=== PATIENT | female | born 1970 | race Caucasian/White ===

== ENCOUNTER 2017-02-11 08:30 | Emergency (ER) | payer BC, OTHER ==
[~2017-02-11] VITALS: Ht 154.9 cm; Wt 55.0 kg
[~2017-02-11 08:30] MED LIST: NO CURRENT MEDS
[2017-02-11 08:34] VITALS: Ht 154.9 cm; Wt 55.0 kg
[2017-02-11] MEDS ORDERED: SODI126M NASAL (08:52)
--- NOTE | 2017-02-11 16:30 | ERD ---
ER Documentation Chief Complaint Date/Time DATE: 02/11/17 TIME: 16:28 Chief Complaint bodyache,headcahe,cough,runny nose,sore throat HPI 46-year-old female complaining of body ache, sore throat, and headache since yesterday. Patient stated the symptoms have gotten worse today. She now has cough and runny nose. The cough is nonproductive. Denies fever or chills. Denies shortness of breath. Denies abdominal pain, nausea, vomiting, or diarrhea. ROS All systems reviewed and are negative except as per history of present illness. Medications Home Meds Active Scripts Sodium Chloride (Saline Nasal Mist) 126 Ml Mist, 2 SPRAY NASAL Q2H Y for NASAL CONGESTION, #1 BOTTLE Prov:JULISSA HUYNH NP 02/11/17 Reported Medications [No Current Meds] No Conflict Check 09/15/09 Allergies Allergies: Coded Allergies: No Known Allergy (Verified , 05/30/13) PMhx/Soc History of Surgery: Yes (LASER EYE SX BOTH EYES) Anesthesia Reaction: No Hx Neurological Disorder: No Hx Respiratory Disorders: No Hx Cardiac Disorders: No Hx Psychiatric Problems: No Hx Miscellaneous Medical Probl: No Hx Alcohol Use: No Hx Substance Use: No Hx Tobacco Use: No Physical Exam Vitals Vital Signs Date Time Temp Pulse Resp B/P Pulse Ox O2 Delivery O2 Flow Rate FiO2 02/11/17 08:34 98.7 85 18 128/66 98 Physical Exam General: Well-developed, well-nourished, conscious and coherent, in no distress Skin: Warm and dry without rash, good texture and turgor Head: Normocephalic without evidence of trauma Eyes: Sclera and conjunctivae normal; pupils equal, round, and reactive to light; extraocular movements are intact Ears: Canals are patent. Tympanic membranes are clear Nose/Face: Erythematous and swollen with clear nasal discharge. Mouth/throat: Mucous membranes are moist. Posterior pharynx clear without erythema or exudates Neck: Supple without meningismus or adenopathy. Carotids are equal. Trachea midline. No bruits or JVD Chest: Normal AP diameter. Good expansion without retractions. Nontender. Lungs are clear to auscultate bilaterally with good tidal volume Heart: Regular rate and rhythm. No murmur, rub, or gallops heard Abdomen: Soft and nontender without masses, guarding, or rebound. Bowel sounds are active. No hepatosplenomegaly Extremities: Full range of motion. Good strength bilaterally. No clubbing, cyanosis, or edema. Peripheral pulses are intact. Sensation intact Neuro: Alert and oriented 4, GCS 15. Cranial nerves grossly intact. Motor and sensory exams nonfocal. Moves all extremities. Speech clear. Gait normal Procedures/MDM Patient is afebrile, in no respiratory distress. Lungs are clear to auscultate. I doubt that patient has pneumonia or bronchitis. Likely patient's symptoms are result of viral upper respiratory infection. Patient appears well, stable for discharge and outpatient management. Medical decision making shared with patient and family. Education provided to patient and family. Patient and family expressed understanding of the plan. Medications on discharge: Saline nasal spray. Follow-up: Primary care provider in 2-3 days or return to ED if worse. Disclaimer: Inadvertent spelling and grammatical errors are likely due to EHR/ dictation software use and do not reflect on the overall quality of patient care. Also, please note that the electronic time recorded on this note does not necessarily reflect the actual time of the patient encounter. Departure Diagnosis: Primary Impression: Upper respiratory infection Condition: Stable Patient Instructions: Adult Self-Care for Colds Referrals: DOCTOR,NOT ON STAFF (PCP) COMM[facility]ITY CL[facility] YOU HAVE RECEIVED A MEDICAL SCREENING EXAM AND THE RESULTS INDICATE THAT YOU DO NOT HAVE A CONDITION THAT REQUIRES URGENT TREATMENT IN THE EMERGENCY DEPARTMENT. FURTHER EVALUATION AND TREATMENT OF YOUR CONDITION CAN WAIT UNTIL YOU ARE SEEN IN YOUR DOCTORS OFFICE WITHIN THE NEXT 1-2 DAYS. IT IS YOUR RESPONSIBILITY TO MAKE AN APPOINTMENT FOR FOLOW-UP CARE. IF YOU HAVE A PRIMARY DOCTOR --you should call your primary doctor and schedule an appointment IF YOU DO NOT HAVE A PRIMARY DOCTOR YOU CAN CALL OUR PHYSICIAN REFERRAL HOTLINE AT IF YOU CAN NOT AFFORD TO SEE A PHYSICIAN YOU CAN CHOSE FROM THE FOLLOWING REPLACED BY [facility] [address] [facility] [address] [facility] [address] [facility] [address] [facility] [address] [facility] [facility] [address] Additional Instructions: Call your primary care doctor TOMORROW for an appointment during the next 2-3 days.See the doctor sooner or return here if your condition worsens before your appointment time. JULISSA HUYNH. MAXWELL Feb 11, 2017 16:30
== END 2017-02-11 09:13 | disposition home or self-care (01) ==
LOC: FTE 08:30
DX: J06.9 Acute upper respiratory infection, unspecified (principal)
CPT/HCPCS: 99283

== ENCOUNTER 2017-02-17 14:07 | Emergency (ER) | payer BC ==
[~2017-02-17 14:07] MED LIST changes: +SODI126M NASAL
[2017-02-17] MEDS ORDERED: IBUP-1542 PO (14:15)
[2017-02-17] MEDS ORDERED: IBUPROFEN 600 MG TAB PO ONE (14:30)
[2017-02-17] MEDS ORDERED: PENICILLIN G BENZ 1.2 MIL UNIT SYG IM ONE (14:30)
--- NOTE | 2017-02-17 18:07 | ERD ---
ER Documentation Chief Complaint Date/Time DATE: 02/17/17 TIME: 18:03 Chief Complaint HPI 46-year-old young woman otherwise healthy presents with one-week URI symptoms and sore throat 3-4 days. She has had pain with swallowing and tactile fevers , no rash, no vomiting or diarrhea, no dysuria, no chest pain or shortness of breath. Patient has not yet used antibiotics. ROS All systems reviewed and are negative except as per history of present illness. Medications Home Meds Active Scripts Ibuprofen* (Ibuprofen*) 600 Mg Tablet, 600 MG PO Q8 for PAIN AND/OR INFLAMMATION , #30 TAB Prov:KENNEDY RAMSAY MD 02/17/17 Sodium Chloride (Saline Nasal Mist) 126 Ml Mist, 2 SPRAY NASAL Q2H Y for NASAL CONGESTION, #1 BOTTLE Prov:JULISSA HUYNH NP 02/11/17 Reported Medications [No Current Meds] No Conflict Check 09/15/09 Allergies Allergies: Coded Allergies: No Known Allergy (Verified , 05/30/13) PMhx/Soc History of Surgery: Yes (LASER EYE SX BOTH EYES) Anesthesia Reaction: No Hx Neurological Disorder: No Hx Respiratory Disorders: No Hx Cardiac Disorders: No Hx Psychiatric Problems: No Hx Miscellaneous Medical Probl: No Hx Alcohol Use: No Hx Substance Use: No Hx Tobacco Use: No FmHx Family History: No diabetes Physical Exam Vitals Per nurses records Physical Exam GENERAL: Well-developed, well-nourished, well-hydrated, in no apparent distress , looks nontoxic in appearance HEENT: Bilateral pharyngeal erythema with exudates, uvula is midline, no submandibular induration. Mild nasal congestion NEURO: Alert and oriented 3, cranial nerves II through XII intact bilaterally, pupils equal round reactive to light, no focal deficits or facial asymmetry, sensation intact distally Strength 5/5 in upper and lower extremities bilaterally CARDIAC: Regular rate and rhythm, no murmurs rubs or gallops LUNGS: Clear bilaterally no wheezing crackles or stridor ABDOMEN: Soft nontender, no guarding, no rigidity, no rebound, no psoas sign no obturator sign. Normoactive bowel sounds SKIN: Warm and dry to touch, no abrasions, contusions, or hematomas, no lacerations, no ecchymosis, no target lesions, and without ulcers EXTREMITIES: No clubbing cyanosis or edema, calves are bilaterally symmetrical, no Homans sign, no popliteal cord sign. Distal pulses equal and bilateral PSYCH: Normal affect without agitation or irritability Results 24 hrs Current Medications Medications (Trade) Dose Ordered Sig/Ruth Ann Route PRN Reason Start Time Stop Time Status Last Admin Dose Admin Penicillin G Benzathine (Bicillin La) 1,200,000 units ONCE ONCE IM 02/17/17 14:30 02/17/17 14:31 DC 02/17/17 14:33 Ibuprofen (Motrin) 600 mg ONCE ONCE PO 02/17/17 14:30 02/17/17 14:31 DC 02/17/17 14:29 Procedures/MDM I administered ibuprofen 600 mg p.o. and penicillin LA 1.2 million units IM 1. Patient feels much better at this time, and vital signs are normal, symptoms have improved. I did give strict instructions to return to the ED if symptoms continue or worsen, patient will otherwise follow-up with primary care physician. Patient understood instructions and agreed to plan. Disclaimer: Inadvertent spelling and grammatical errors are likely due to EHR/ dictation software use and do not reflect on the overall quality of patient care. Also, please note that the electronic time recorded on this note does not necessarily reflect the actual time of the patient encounter. Departure Diagnosis: Primary Impression: Strep pharyngitis Condition: Good Patient Instructions: Strep Throat KENNEDY RAMSAY MD Feb 17, 2017 18:07
== END 2017-02-17 16:24 | disposition home or self-care (01) ==
LOC: E/R 14:07
DX: J02.0 Streptococcal pharyngitis (principal)
CPT/HCPCS: 96372; 99284; J0561

== ENCOUNTER → 2017-04-05 | Outpatient (CLI) | payer BC ==
[~2017-04-05] MED LIST changes: +IBUP-1542 PO
[2017-04-05 07:33] LABS: ADD UMIC YES; UR ASCORBIC ACID NEGATIVE (NEGATIVE); UR BILIRUBIN (Dip) NEGATIVE (NEGATIVE); UR BLOOD (Dip) NEGATIVE (NEGATIVE); UR CLARITY SLIGHTLY CLOUDY (CLEAR); UR COLOR YELLOW (YELLOW); UR GLUCOSE (Dip) NEGATIVE (NEGATIVE); UR KETONES (Dip) NEGATIVE (NEGATIVE); UR LEUKOCYTE ESTERASE (Dip) TRACE Leu/ul (NEGATIVE); UR NITRITE (Dip) NEGATIVE (NEGATIVE); UR RBC 1 /HPF (0-5); UR SPECIFIC GRAVITY (Dip) 1.017 (1.003-1.030); UR SQUAMOUS EPITHELIAL CELL MODERATE /HPF (FEW); UR TOTAL PROTEIN (Dip) NEGATIVE (NEGATIVE); UR UROBILINOGEN (Dip) NEGATIVE (NEGATIVE)
[2017-04-05 07:36] LABS: IRON 159 ug/dl (35-150)
[2017-04-05 07:38] LABS: ALBUMIN 3.9 g/dl (3.3-4.9); ALBUMIN/GLOBULIN RATIO 1.34; BILIRUBIN,INDIRECT 0.7 mg/dl (0-1.1); BILIRUBIN,TOTAL 0.7 mg/dl (0.2-1.3); CHOL/HDL RATIO 2.7 RATIO; CREATININE 0.88 mg/dl (0.44-1.00); TOTAL PROTEIN 6.8 g/dl (6.1-8.1)
[2017-04-05 07:46] LABS: TOTAL IRON BINDING CAPACITY 343 ug/dl (241-421)
[2017-04-05 07:57] LABS: FREE T3 3.8 pg/ml (2.77-5.27); T3 UPTAKE 36.2 % (23.5-40.5)
[2017-04-05 08:10] LABS: THYROID STIMULATING HORMONE 1.52 MIU/L (0.465-4.680); TRIIODOTHYRONINE 1.01 ng/ml (0.97-1.69)
--- NOTE | 2017-04-05 09:02 | RADRPT ---
PROCEDURE: US Thyroid. CLINICAL INDICATION: Thyroid nodule. TECHNIQUE: High-resolution sonography of the thyroid was performed in the axial and sagittal plane s. COMPARISON: None. FINDINGS: The right lobe measures 3.7 x 1.7 x 122 cm. The left lobe measures 3.9 x 0.8 x 1.1 cm. The isthmus measures 0.2 cm. There is a hypoechoic nodule inferiorly in the right lobe measuring 0.6 x 0.6 x 0.5 cm, a hypoechoic nodule in the left lobe inferiorly measuring 0.4 x 0.5 x 0.3 cm, and a cystic nodule in the left lo be superiorly measuring 0.3 x 0.3 x 0.2 cm. There is no other thyroid nodule. Thyroid echogenicity is normal. The thyroid is normal in size. IMPRESSION: 1. Small nodules bilaterally, all measuring less than 1 cm. Due to the small size and benign appear ance, no further evaluation is advised. 2. Otherwise normal thyroid ultrasound. RPTAT: QQ .Iraj Rodríguez MD, Date Time Electronically viewed and signed by .Iraj Rodríguez MD, on 04/05/2017 09:02 .R/
== END | disposition home or self-care (01) ==
LOC: U/S 06:46
PROVIDERS: ATTEND General Practice
DX: E04.1 Nontoxic single thyroid nodule (principal)
CPT/HCPCS: 76536; 80053; 80061; 81001; 83540; 84436; 84439; 84443; 84479; 84480; 84481; 86140

== ENCOUNTER 2017-05-24 07:41 | Emergency (ER) | payer BC ==
[~2017-05-24] VITALS: Ht 154.9 cm; Wt 53.6 kg
[2017-05-24 07:48] VITALS: Ht 154.9 cm; Wt 53.6 kg
[2017-05-24] MEDS ORDERED: LIDOCAINE/MYLANTA 40 ML BTL PO STA (08:05)
--- NOTE | 2017-05-24 08:40 | ERD ---
ER Documentation Chief Complaint Chief Complaint bib from home for complaints of ap, now resolved. +n/v/d. no fever HPI This is a 46-year-old female complains of a 3 month history of having morning nausea vomiting twice a week. She states that she wakes up in the morning and gets to work and has nothing to eat at all will occasionally have some vitamins or may be green tea. She says twice a week she gets nausea and vomits once or twice it is nonbilious nonbloody and then she feels better. She has no other associated symptoms such as palpitations tremors anxiety chest pain or shortness of breath. Patient had an ultrasound of her gallbladder done 2 weeks ago and it was normal. She also had blood work which was normal she states. The patient says she is experimenting with not eating anything or having some food or not having her supplements. She states she thinks it may be correlated to when she has fruit late at night. Currently she describes an epigastric burning sensation ROS All systems reviewed and are negative except as per history of present illness. Medications Home Meds Active Scripts Ondansetron (Ondansetron Odt) 4 Mg Tab.rapdis, 4 MG PO Q6H Y for NAUSEA AND/OR VOMITING, #10 TAB Prov:MARK LANDERS DO 05/24/17 Ibuprofen* (Ibuprofen*) 600 Mg Tablet, 600 MG PO Q8 for PAIN AND/OR INFLAMMATION , #30 TAB Prov:KENNEDY RAMSAY MD 02/17/17 Sodium Chloride (Saline Nasal Mist) 126 Ml Mist, 2 SPRAY NASAL Q2H Y for NASAL CONGESTION, #1 BOTTLE Prov:JULISSA HUYNH NP 02/11/17 Reported Medications [No Current Meds] No Conflict Check 09/15/09 Allergies Allergies: Coded Allergies: No Known Allergy (Verified , 05/30/13) PMhx/Soc Medical and Surgical Hx: pt denies Medical Hx History of Surgery: Yes (lasik eye surgery) Anesthesia Reaction: No Hx Neurological Disorder: No Hx Respiratory Disorders: No Hx Cardiac Disorders: No Hx Psychiatric Problems: No Hx Miscellaneous Medical Probl: No Hx Alcohol Use: Yes (social) Hx Substance Use: No Hx Tobacco Use: No Smoking Status: Unknown if ever smoked FmHx Family History: No coronary disease Physical Exam Vitals Vital Signs Date Time Temp Pulse Resp B/P Pulse Ox O2 Delivery O2 Flow Rate FiO2 05/24/17 07:48 98.0 67 14 116/69 100 Physical Exam C Const: Well-developed, well-nourished Head: Atraumatic, normocephalic Eyes: Normal Conjunctiva, PERRLA, EOMI, normal sclera, no nystagmus ENT: Normal External Ears, Nose and Mouth, moist mucus membranes. Neck: Full range of motion. No meningismus, no lymphadenopathy. Resp: Clear to auscultation bilaterally, no wheezing, rhonchi, rales Cardio: Regular rate and rhythm, no murmurs, S1 S2 present Abd: Soft, mild epigastric tenderness non distended. Normal bowel sounds, no guarding or rebound, no pulsitile abdominal masses or bruits Skin: No petechiae or rashes, no ecchymosis , no maculopapular rash Back: No midline or flank tenderness Ext: No cyanosis, or edema, FROM x 4, normal inspection, neurovascularly intact x 4 Neur: Awake and alert, STR 5/5 x 4, sensation intact x 4, no focal findings, cerebellum intact Psych: Normal Mood and Affect Result Diagram: 05/24/1715 05/24/17 0815 Results 24 hrs Laboratory Tests Test 05/24/17 08:15 White Blood Count 6.210^3/ul Red Blood Count 4.3010^6/ul Hemoglobin 13.2g/dl Hematocrit 38.3% Mean Corpuscular Volume 89.1fl Mean Corpuscular Hemoglobin 30.7pg Mean Corpuscular Hemoglobin Concent 34.5g/dl Red Cell Distribution Width 13.1% Platelet Count 42788^3/UL Mean Platelet Volume 11.6fl Neutrophils % 68.4% Lymphocytes % 21.7% Monocytes % 7.0% Eosinophils % 2.1% Basophils % 0.5% Nucleated Red Blood Cells % 0.0/100WBC Neutrophils # 4.210^3/ul Lymphocytes # 1.310^3/ul Monocytes # 0.410^3/ul Eosinophils # 0.110^3/ul Basophils # 0.010^3/ul Nucleated Red Blood Cells # 0.010^3/ul Sodium Level 142mmol/L Potassium Level 4.0mmol/L Chloride Level 106mmol/L Carbon Dioxide Level 28mmol/L Anion Gap 12 Blood Urea Nitrogen 11mg/dl Creatinine 0.71mg/dl Glucose Level 93mg/dl Calcium Level 9.2mg/dl Total Bilirubin 0.6mg/dl Direct Bilirubin 0.00mg/dl Indirect Bilirubin 0.6mg/dl Aspartate Amino Transf (AST/SGOT) 22IU/L Alanine Aminotransferase (ALT/SGPT) 32IU/L Alkaline Phosphatase 39IU/L Troponin I < 0.012ng/ml Total Protein 6.6g/dl Albumin 3.8g/dl Globulin 2.80g/dl Albumin/Globulin Ratio 1.35 Lipase 62U/L Current Medications Medications (Trade) Dose Ordered Sig/Ruth Ann Route PRN Reason Start Time Stop Time Status Last Admin Dose Admin Miscellaneous Medication (Gi Cocktail (2)) 40 ml ONCE STAT PO 05/24/17 08:05 05/24/17 08:06 DC 05/24/17 08:28 Procedures/MDM Patient does not sound like she is having any type of adrenaline wan that can occur in some morning cortisol surges. She has no anxiety palpitations. Patient may have some gastric irritation because she has been taking fish oil and other supplements. She takes is on an empty stomach. She does not have any history of reflux. She states that she has not eating most mornings when this happens. I encouraged her to have something small to eat in the morning to see if it stops the problem or have a larger dinner. Blood work is unremarkable. The GI cocktail helped a little bit. The patient has no pain now. The patient will follow a dietary change recommendation if not better will seek GI for an endoscopy Departure Diagnosis: Primary Impression: Vomiting Vomiting type: unspecified Vomiting Intractability: unspecified Nausea presence: with nausea Qualified Code: R11.2 - Nausea and vomiting, intractability of vomiting not specified, unspecified vomiting type Condition: Maria Isabel LEESAMARK MairaCecily RONDON May 24, 2017 08:39
[2017-05-24 09:03] LABS: BASOPHILS % 0.5 % (0.0-2.0); EOSINOPHILS # 0.1 10^3/ul (0.0-0.5); EOSINOPHILS % 2.1 % (0.0-7.0); HEMATOCRIT 38.3 % (37.0-47.0); HEMOGLOBIN 13.2 g/dl (12.0-16.0); LYMPHOCYTES # 1.3 10^3/ul (0.8-2.9); LYMPHOCYTES % 21.7 % (15.0-51.0); MEAN CORPUSCULAR HEMOGLOBIN 30.7 pg (29.0-33.0); MEAN CORPUSCULAR HGB CONC 34.5 g/dl (32.0-37.0); MEAN CORPUSCULAR VOLUME 89.1 fl (82.0-101.0); MEAN PLATELET VOLUME 11.6 fl (7.4-10.4); MONOCYTE # 0.4 10^3/ul (0.3-0.9); NEUTROPHIL # 4.2 10^3/ul (1.6-7.5); NEUTROPHILS % 68.4 % (39.0-77.0); PLATELET COUNT 251 10^3/UL (140-415); RED CELL DISTRIBUTION WIDTH 13.1 % (11.5-14.5); WHITE BLOOD COUNT 6.2 10^3/ul (4.8-10.8)
[2017-05-24 09:24] LABS: ALANINE AMINOTRANSFERASE 32 IU/L (13-69); ALBUMIN 3.8 g/dl (3.3-4.9); ALBUMIN/GLOBULIN RATIO 1.35; ALKALINE PHOSPHATASE 39 IU/L (42-121); ANION GAP 12 (8-16); ASPARTATE AMINO TRANSFERASE 22 IU/L (15-46); BILIRUBIN,INDIRECT 0.6 mg/dl (0-1.1); BILIRUBIN,TOTAL 0.6 mg/dl (0.2-1.3); BLOOD UREA NITROGEN 11 mg/dl (7-20); CALCIUM 9.2 mg/dl (8.4-10.2); CARBON DIOXIDE 28 mmol/L (21-31); CHLORIDE 106 mmol/L (97-110); CREATININE 0.71 mg/dl (0.44-1.00); GLUCOSE 93 mg/dl (70-220); SODIUM 142 mmol/L (135-144); TOTAL PROTEIN 6.6 g/dl (6.1-8.1)
[2017-05-24 09:35] LABS: TROPONIN-I < 0.012 ng/ml (0.00-0.12)
[2017-05-24] MEDS ORDERED: ONDA4TAB14 PO (09:43)
[2017-05-24 09:58] VITALS: BP 115/65; PULSE 72; RESP 18; TEMP 98.2
== END 2017-05-24 09:55 | disposition home or self-care (01) ==
LOC: E/R 07:41
DX: R11.2 Nausea with vomiting, unspecified (principal)
CPT/HCPCS: 36415; 80053; 83690; 84484; 85025; 99283

== ENCOUNTER → 2019-01-30 | Outpatient (CLI) | payer BC ==
[~2019-01-30] MED LIST changes: +ONDA4TAB14 PO
== END | disposition home or self-care (01) ==
LOC: LAB 06:43
PROVIDERS: ATTEND Internal Medicine
DX: E03.9 Hypothyroidism, unspecified (principal); E78.5 Hyperlipidemia, unspecified; E55.9 Vitamin D deficiency, unspecified; R73.03 Prediabetes
CPT/HCPCS: 80053; 80061; 82306; 83036; 84436; 84443; 85025